=== PATIENT | female | born 1985 | race Two or more races ===

== ENCOUNTER → 2023-08-09 | Outpatient (CLI) | payer BC ==
[2023-08-09 08:22] LABS: Urine Blood 3+ /uL (Negative); Urine Clarity Clear (Clear); Urine Color Light-Yellow (Yellow); Urine Protein, UAD TRACE (Negative); Urine Specific Gravity 1.026 (1.001-1.035); Urine Urobilinogen Normal (Negative)
[2023-08-09 08:33] LABS: Basophils # (auto) 0 10 ^3/uL (0-0.2); Basophils % (auto) 0.5 % (0.0-2.0); Eosinophils # (auto) 0.1 10 ^3/uL (0-0.8); Eosinophils % (auto) 2.2 % (0.0-7.0); Hematocrit 41.9 % (36.0-46.0); Hemoglobin 13.6 g/dL (12.2-16.2); Lymphocytes # (auto) 1.9 10 ^3/uL (0.4-5.4); Mean Corpuscular Hemoglobin 29.7 pg (28.0-32.0); Mean Corpuscular Hgb Conc. 32.5 g/dL (32.0-36.0); Mean Corpuscular Volume 91.4 fL (80.0-100.0); Monocytes # (auto) 0.3 10 ^3/uL (0-1.3); Monocytes % (auto) 5.6 % (0.0-12.0); Neutrophils % (auto) 55.7 % (37.0-80.0); Nucleated Red Blood Cells % 0.1 %; Red Blood Cells 4.59 10^6/uL (4.0-5.20); Red Cell Distribution Width 13.4 % (11.8-14.3); White Blood Cell 5.4 10^3/uL (4.4-10.8)
[2023-08-09 08:52] LABS: Uric Acid 4.3 mg/dL (3.1-7.8)
== END | disposition home or self-care (01) ==
LOC: LAB 07:53
PROVIDERS: ATTEND Family Medicine
DX: Z13.89 Encounter for screening for other disorder (principal); Z00.01 Encounter for general adult medical examination with abnormal findings; O14.94 Unspecified pre-eclampsia, complicating childbirth; M54.41 Lumbago with sciatica, right side; Z68.33 Body mass index [BMI] 33.0-33.9, adult; Z3A.00 Weeks of gestation of pregnancy not specified
CPT/HCPCS: 36415; 80061; 81003; 83036; 84443; 84550; 85025

== ENCOUNTER 2024-02-15 21:11 | Emergency (ER) | payer BC ==
[~2024-02-15] VITALS: Ht 165.1 cm; Wt 95.3 kg
--- NOTE | 2024-02-15 21:42 | ED.PDOC ---
GI ASSESSMENT HPI Comments 38-year-old female who came to ER for abdominal pain. Patient denies any abdominal surgeries. States for the past 2 days she has been experiencing burning epigastric short upper quadrant abdominal pain, usually occurring after meals. Noted to have nausea and vomiting. Denies any urinary symptoms or fever. Chief Complaint: Abdominal Pain Time Seen by MD: 21:42 Reviewed Notes: Nurses Notes Allergies: Coded Allergies: Amoxicillin (Verified Allergy, Unknown, 02/15/24) Benzocaine (Verified Allergy, Unknown, 02/15/24) Fish Oil (Verified Allergy, Unknown, 02/15/24) Penicillins (Verified Allergy, Unknown, 02/15/24) Information Source: Patient Mode of Arrival: Ambulatory Timing: Days Duration: Intermittent Prehospital treatment: None Quality: Burning Vomitus: Watery Stool: Normal Severity: Moderate Recent: None Recent Hx of: None Pain Location: Epigastric, RUQ Associated sign and symptoms: Nausea, Vomiting, Abdominal Pain Past Medical History PAST MEDICAL HISTORY: Denies Surgical History: Denies all surgeries HOUSE COORDINATOR History: Denies all HOUSE COORDINATOR Hx Family History Family History: Reviewed,noncontributory to illness Social History Smoker: Non-Smoker Alcohol: Denies ETOH Use Drugs: Denies Drug Use Lives In: Home Constitutional: denies: chills, diaphoresis, fatigue, fever, malaise, sweats, weakness, others EENTM: denies: blurred vision, double vision, ear bleeding, ear discharge, ear drainage, ear pain, ear ringing, eye pain, eye redness, hearing loss, mouth pain, mouth swelling, nasal discharge, nose bleeding, nose congestion, nose pain, photophobia, tearing, throat pain, throat swelling, voice changes, others Respiratory: denies: cough, hemoptysis, orthopnea, SOB at rest, shortness of breath, SOB with excertion, stridor, wheezing, others Cardiovascular: denies: chest pain, dizzy spells, diaphoresis, Dyspnea on exertion, edema, irregular heart beat, left arm pain, lightheadedness, palpitations, PND, syncope, others Gastrointestinal: reports: abdominal pain, nausea, vomiting; denies: abdomen distended, blood streaked bowels, constipated, diarrhea, dysphagia, difficulty s wallowing, hematemesis, melena, poor appetite, poor fluid intake, rectal bleeding, rectal pain, others Genitourinary: denies: abnormal vagina bleeding, burning, dyspareunia, dysuria, flank pain, frequency, hematuria, incontinence, pain, , vagina discharge, urgency, others Neurological: denies: dizziness, fainting, headache, left sided numbness, left sided weakness, numbness, paresthesia, pre-existing deficit, right sided numbness, right sided weakness, seizure, speech problems, tingling, tremors, weakness, others Musculoskeletal: denies: back pain, gout, joint pain, joint swelling, muscle pain, muscle stiffness, neck pain, others Integumetry: denies: bruises, change in color, change in hair/nails, dryness, laceration, lesions, lumps, rash, wounds, others Allergic/Immunocompromised: denies: Difficulty Healing, Frequent Infections, Hives, Itching, others Hematologic/Lymphatic: denies: anemia, blood clots, easy bleeding, easy bruising, swollen glands, others Endocrine: denies: excessive hunger, excessive sweating, excessive thirst, excessive urination, flushing, intolerance to cold, intolerance to heat, unexplained weight gain, unexplained weight loss, others Psychiatric: denies: anxiety, bipolar disorder, depression, hopeless, panic disorder, schizophrenia, sleepless, suicidal, others Physical Exam General Appearance: No Apparent Distress, Normal HEENT: Normal ENT Inspection, Pharynx Normal, TMs Normal Neck: Full Range of Motion, Non-Tender, Normal, Normal Inspection Respiratory: Chest Non-Tender, Lungs Clear, No Accessory Muscle Use, No Respiratory Distress, Normal Breath Sounds Cardiovascular: No Edema, No JVD, No Murmur, No Gallop, Normal Peripheral Pulses, Regular Rate/Rhythm Breast Exam: Deferred Gastrointestinal: Epigastric, No Organomegaly, No Pulsatile Mass, Normal Bowel Sounds, RUQ, Soft, Tenderness Genitalia: Deferred Pelvic: Deferred Rectal: Deferred Extremities: No calf tenderness, Normal capillary refill, Normal inspection, Normal range of motion, Non-tender, No pedal edema Musculoskeletal : Apperance: Normal Neurologic: Alert, arcade game technician II-XII nml as Tested, No Motor Deficits, Normal Affect, Normal Mood, No Sensory Deficits Cerebellar Function: Normal Reflexes: Normal Skin: Dry, Normal Color, Warm Lymphatic: No Adenopathy Was a procedure done? Was a procedure done?: No GI differential Dx Differential Diagnosis: Cholecystitis, Constipation, Diverticular disease, Gastritis/PUD, Gastroenteritis, Pancreatitis, UTI, Urolithiasis X-Ray, Labs, Meds, VS Vital Signs Date Time Temp Pulse Resp B/P (MAP) Pulse Ox O2 Delivery O2 Flow Rate FiO2 02/15/24 22:53 98.3 102 16 140/80 (100) 100 98.3 02/15/24 21:22 98.3 100 20 142/91 (108) 100 Lab Test 02/15/24 21:43 02/15/24 21:26 Range/Units White Blood Count 6.8 4.4-10.8 10^3/uL Red Blood Count 4.44 4.0-5.20 10^6/uL Hemoglobin 13.9 12.2-16.2 g/dL Hematocrit 40.4 36.0-46.0 % Mean Corpuscular Volume 91.0 80.0-100.0 fL Mean Corpuscular Hemoglobin 31.2 28.0-32.0 pg Mean Corpuscular Hemoglobin Concent 34.3 32.0-36.0 g/dL Red Cell Distribution Width 13.1 11.8-14.3 % Platelet Count 216 140-450 10^3/uL Mean Platelet Volume 8.9 6.9-10.8 fL Neutrophils (%) (Auto) 56.4 37.0-80.0 % Lymphocytes (%) (Auto) 35.0 10.0-50.0 % Monocytes (%) (Auto) 6.2 0.0-12.0 % Eosinophils (%) (Auto) 1.9 0.0-7.0 % Basophils (%) (Auto) 0.5 0.0-2.0 % Neutrophils # (Auto) 3.8 1.6-8.6 10 ^3/uL Lymphocytes # (Auto) 2.4 0.4-5.4 10 ^3/uL Monocytes # (Auto) 0.4 0-1.3 10 ^3/uL Eosinophils # (Auto) 0.1 0-0.8 10 ^3/uL Basophils # (Auto) 0 0-0.2 10 ^3/uL Nucleated Red Blood Cells 0.0 % Sodium Level 139 136-145 mmol/L Potassium Level 4.0 3.5-5.1 mmol/L Chloride Level 109 H 98-107 mmol/L Carbon Dioxide Level 22 20-31 mmol/L Anion Gap 8 5-15 Blood Urea Nitrogen 7 L 9-23 mg/dL Creatinine 0.88 0.550-1.02 mg/dL Glomerular Filtration Rate Calc 85 >90 mL/min BUN/Creatinine Ratio 8.0 L 10.0-20.0 Serum Glucose 97 74-106 mg/dL Calcium Level 10.1 8.7-10.4 mg/dL Total Bilirubin 0.4 0.2-1.0 mg/dL Aspartate Amino Transferase (AST) 13 13-40 U/L Alanine Aminotransferase (ALT) 16 7-40 U/L Alkaline Phosphatase 81 46-116 U/L Total Protein 7.3 5.7-8.2 g/dL Albumin 4.9 H 3.2-4.8 g/dL Lipase 48 12-53 U/L Urine Color Colorless Yellow Urine Clarity Clear Clear Urine pH 6.5 5.0-9.0 Urine Specific [place] 1.004 1.001-1.035 Urine Protein Negative Negative Urine Ketones Negative Negative Urine Blood Negative Negative /uL Urine Nitrite Negative Negative Urine Bilirubin Negative Negative Urine Urobilinogen Normal Negative mg/dL Urine Leukocyte Esterase 1+ Negative /uL Urine RBC 1 0 - 4 /hpf Urine WBC 1 0 - 5 /hpf Urine Squamous Epithelial Cells None seen <5 /hpf Urine Bacteria Few H None Seen /hpf Urine Glucose Normal Normal mg/dL Urine Test Negative Negative Current Medications Medications (Trade) Dose Ordered Sig/Lexi Route Start Time Stop Time Status Last Admin Sodium Chloride 1,000 ml @ 1,000 mls/hr Q1H ONCE IV 02/15/24 21:45 02/15/24 22:44 DC 02/15/24 23:16 Pantoprazole Sodium (Protonix) 40 mg ONCE ONCE IV 02/15/24 21:45 02/15/24 21:46 DC 02/15/24 23:12 PROCEDURE(s): GBUS - GALLBLADDER REASON: ruq pain ORDER NUMBER(s): [id number], ACCESSION NUMBER(s): [id number] FINDINGS: Increased echogenicity to the hepatic parenchyma suggesting steatosis.. The liver measures 14.56 cm. No intrahepatic biliary ductal dilatation is noted. The gallbladder wall measures 0.12 cm and is unremarkable. No gallstones or sludge is seen. The common duct measures 0.46 cm and is unremarkable. No pericholecystic fluid is noted. Negative ultrasound Gale's sign is elicited. The right kidney measures 11.09 cm. No hydronephrosis. The pancreas is visualized and appears normal The visualized portions of the IVC and aorta are grossly unremarkable. IMPRESSION: 1. 14.56 cm liver with findings suggesting steatosis. 2. Gallbladder appears normal. Time of 1ST Reevaluation: 21:35 Reevaluation 1ST: Unchanged Patient Education/Counseling: Diagnosis, Treatment Family Education/Counseling: No Family Present Departure 1 Departure Time of Disposition: 23:41 (Patient presented with abdominal pain that was concerning for possible appendicits, gastritis, cholecystitis, colitis, gastroenteritis, or orther possible surgical emergency. Data: 1. I ordered and reviewed the result of at least 3 labs including a CBC, BMP, and Urinalysis. 2. I independently interpreted the following tests: Ultrasound is concerning for liver steatosis .Risk:This patient has a high risk of morbidity due to further diagnostic testing or treatment and may suffer from an acute abdominal process disorder. Fortunately workup reveals likely peptic ulcer disease. and patient can be safely discharged to home with outpatient follow up.) Impression: Primary Impression: Acid reflux Qualified Codes: K21.9 - Gastro-esophageal reflux disease without esophagitis Disposition: HOME / SELF CARE / HOMELESS Condition: Stable Additional Instructions: You likely have a gastric ulcer. It is important to stay well hydrated and well rested. You should take [id number] omeprazole daily for 2 weeks. You should follow up with the regular doctor within 1 week. If your symptoms worsen or you have any other concerns please return to the ER. Discharged With: Self Critical Care Note Critical Care Time?: No Stability Stability form required: No Heart Score Heart Score: Heart Score Response (Comments) Value History N/A 0 EKG N/A 0 Age N/A 0 Risk Factors N/A 0 Troponin N/A 0 Total 0 I personally scribed for WALE ALWRENCE MD ([email or web address]) on 02/15/24 at 21:42. Electronically submitted by Harshad Knott ([email or web address]). I personally scribed for WALE LAWRENCE MD ([email or web address]) on 02/15/24 at 22:48. Electronically submitted by Harshad Knott ([email or web address]). WALE LAWRENCE MD Feb 15, 2024 21:42
[2024-02-15 21:52] LABS: Basophils # (auto) 0 10 ^3/uL (0-0.2); Basophils % (auto) 0.5 % (0.0-2.0); Eosinophils # (auto) 0.1 10 ^3/uL (0-0.8); Eosinophils % (auto) 1.9 % (0.0-7.0); Hematocrit 40.4 % (36.0-46.0); Hemoglobin 13.9 g/dL (12.2-16.2); Lymphocytes # (auto) 2.4 10 ^3/uL (0.4-5.4); Mean Corpuscular Hemoglobin 31.2 pg (28.0-32.0); Mean Corpuscular Hgb Conc. 34.3 g/dL (32.0-36.0); Monocytes # (auto) 0.4 10 ^3/uL (0-1.3); Monocytes % (auto) 6.2 % (0.0-12.0); Neutrophils # (auto) 3.8 10 ^3/uL (1.6-8.6); Neutrophils % (auto) 56.4 % (37.0-80.0); Platelet Count (auto) 216 10^3/uL (140-450); Red Blood Cells 4.44 10^6/uL (4.0-5.20); Red Cell Distribution Width 13.1 % (11.8-14.3); White Blood Cell 6.8 10^3/uL (4.4-10.8)
[2024-02-15 22:00] LABS: Urine Bacteria FEW /hpf (None Seen); Urine Blood Negative /uL (Negative); Urine Clarity Clear (Clear); Urine Color Colorless (Yellow); Urine Protein, UAD Negative (Negative); Urine Specific Gravity 1.004 (1.001-1.035); Urine Urobilinogen Normal (Negative); Urine WBC 1 /hpf (0 - 5); Urine pH 6.5 (5.0-9.0)
[2024-02-15 22:09] LABS: Alanine Aminotransferase 16 U/L (7-40); Albumin 4.9 g/dL (3.2-4.8); Alkaline Phosphatase 81 U/L (46-116); Anion Gap 8 (5-15); Aspartate Aminotransferase 13 U/L (13-40); Bilirubin, Total 0.4 mg/dL (0.2-1.0); Blood Urea Nitrogen 7 mg/dL (9-23); Calcium 10.1 mg/dL (8.7-10.4); Carbon Dioxide 22 mmol/L (20-31); Chloride 109 mmol/L (98-107); Glucose 97 mg/dL (74-106); Lipase 48 U/L (12-53); Sodium 139 mmol/L (136-145); Total Protein 7.3 g/dL (5.7-8.2)
--- NOTE | 2024-02-15 22:19 | DVH ---
INDICATION: Pain. TECHNIQUE: Multiple real-time sonographic images of the abdomen were obtained. COMPARISON: None FINDINGS: Increased echogenicity to the hepatic parenchyma suggesting steatosis.. The liver measures 14.56 cm. No intrahepatic biliary ductal dilatation is noted. The gallbladder wall measures 0.12 cm and is unremarkable. No gallstones or sludge is seen. The co mmon duct measures 0.46 cm and is unremarkable. No pericholecystic fluid is noted. Negative ultrasou nd Gale's sign is elicited. The right kidney measures 11.09 cm. No hydronephrosis. The pancreas is visualized and appears normal The visualized portions of the IVC and aorta are grossly unremarkable. IMPRESSION: 1. 14.56 cm liver with findings suggesting steatosis. 2. Gallbladder appears normal.
[2024-02-15] MEDS: MORPHINE SULFATE 4 MG/ML SYR/VIAL IV ONE (22:50)
[2024-02-15] MEDS: ONDANSETRON HCL 4 MG/2 ML VIAL IV ONE (22:58)
[2024-02-15] MEDS: PANTOPRAZOLE 40 MG/10 ML VIAL INJ IV ONE (23:12)
[2024-02-15] MEDS: SODIUM CHLORIDE 0.9% 1,000 ML IV ONE (23:16)
[2024-02-16 00:22] VITALS: BP 130/78; PULSE 89; RESP 18; TEMP 98.3; O2SAT 99
== END 2024-02-16 00:25 | disposition home or self-care (01) ==
LOC: ER 21:11
DX: K21.9 Gastro-esophageal reflux disease without esophagitis (principal); Z88.0 Allergy status to penicillin; Z88.8 Allergy status to other drugs, medicaments and biological substances
CPT/HCPCS: 36415; 76705; 80053; 81001; 81025; 83690; 85025; 96361; 96374; 99285; J2470; J7030; J2405

== ENCOUNTER → 2024-06-18 | Outpatient (CLI) | payer BC ==
[2024-06-18 11:16] LABS: Triglycerides 129 mg/dL (< 150)
[2024-06-18 11:17] LABS: LDL Cholesterol 83 mg/dL (< 100)
[2024-06-18 11:18] LABS: HDL Cholesterol 55 mg/dL (40-59)
[2024-06-18 11:19] LABS: Cholesterol 152 mg/dL (< 200)
== END | disposition home or self-care (01) ==
LOC: LAB 10:16
PROVIDERS: ATTEND Family Medicine
DX: E78.2 Mixed hyperlipidemia (principal)
CPT/HCPCS: 36415; 80061

== ENCOUNTER 2024-07-13 17:38 | Emergency (ER) | payer BC ==
[~2024-07-13] VITALS: Ht 165.1 cm; Wt 96.9 kg
[2024-07-13 18:00] VITALS: BP 125/79; PULSE 91; RESP 16; TEMP 99.2; O2SAT 98
[2024-07-13] MEDS ORDERED: AZIT500T66 PO (18:53)
--- NOTE | 2024-07-13 18:54 | ED.PDOC ---
Eye-HPI HPI Comments THIS IS A 39-YEAR-OLD FEMALE CHIEF COMPLAINT SORE THROAT X1 MONTH. SYMPTOMS OF BILATERAL EAR PAIN AND PRESSURE INTERMITTENT COUGH FEVERS AND CHILLS. DIFFICULTY BREATHING, SHORTNESS OF BREATH, OR CHEST PAIN. Chief Complaint: Sore Throat Time Seen by MD: 17:43 Primary Care Provider: MITUL Hinkle Notes: Nurses Notes, Medications, Allergies Allergies: Coded Allergies: Amoxicillin (Verified Allergy, Unknown, 02/15/24) Benzocaine (Verified Allergy, Unknown, 02/15/24) Fish Oil (Verified Allergy, Unknown, 02/15/24) Penicillins (Verified Allergy, Unknown, 02/15/24) Information Source: Patient Mode of Arrival: Ambulatory Past Medical History PAST MEDICAL HISTORY: Denies Surgical History: Denies all surgeries BRANCH SERVICE REPRESENTATIVE History: Denies all BRANCH SERVICE REPRESENTATIVE Hx Family History Family History: Reviewed,noncontributory to illness Social History Smoker: Non-Smoker Alcohol: Denies ETOH Use Drugs: Denies Drug Use Lives In: Home Constitutional: reports: chills, fever; denies: diaphoresis, fatigue, malaise, sweats, weakness, others EENTM: reports: ear pain, throat pain, throat swelling; denies: blurred vision, double vision, ear bleeding, ear discharge, ear drainage, ear ringing, eye pain, eye redness, hearing loss, mouth pain, mouth swelling, nasal discharge, nose bleeding, nose congestion, nose pain, photophobia, tearing, voice changes, others Respiratory: reports: cough; denies: hemoptysis, orthopnea, SOB at rest, short ness of breath, SOB with excertion, stridor, wheezing, others Cardiovascular: denies: chest pain, dizzy spells, diaphoresis, Dyspnea on exertion, edema, irregular heart beat, left arm pain, lightheadedness, palpitations, PND, syncope, others Gastrointestinal: denies: abdomen distended, abdominal pain, blood streaked bowels, constipated, diarrhea, dysphagia, difficulty swallowing, hematemesis, melena, nausea, poor appetite, poor fluid intake, rectal bleeding, rectal pain, vomiting, others Genitourinary: denies: abnormal vagina bleeding, burning, dyspareunia, dysuria, flank pain, frequency, hematuria, incontinence, pain, , vagina discharge, urgency, others Physical Exam General Appearance: No Apparent Distress, Normal HEENT: Pharyngeal Erythema, TMs Normal Neck: Full Range of Motion, Non-Tender Respiratory: Chest Non-Tender, Lungs Clear, No Accessory Muscle Use, No Respiratory Distress, Normal Breath Sounds Cardiovascular: No Edema, No JVD, No Murmur, No Gallop, Normal Peripheral Pulses, Regular Rate/Rhythm Breast Exam: Deferred Gastrointestinal: No Organomegaly, Non Tender, No Pulsatile Mass, Normal Bowel Sounds, Soft Genitalia: Deferred Pelvic: Deferred Rectal: Deferred Extremities: Normal capillary refill, Normal inspection, Normal range of motion, Non-tender, No pedal edema Musculoskeletal : Apperance: Normal Neurologic: Alert, brace end mainspring former II-XII nml as Tested, No Motor Deficits, Normal Affect, Normal Mood, No Sensory Deficits Cerebellar Function: Normal Reflexes: Normal Skin: Dry, Normal Color, Warm Lymphatic: No Adenopathy Was a procedure done? Was a procedure done?: No EENT DIFF Eye: N/A Sore Throat: Peritonsillar Abscess, Peritonsillar Cellulitis, Streptococcal X-Ray, Labs, Meds, VS Vital Signs Date Time Temp Pulse Resp B/P (MAP) Pulse Ox O2 Delivery O2 Flow Rate FiO2 07/13/24 18:00 99.2 91 16 125/79 (94) 98 99.2 X-Ray, Labs, Meds, VS Comment GIVEN DECADRON FOR THE PAIN AND SWELLING. TRIAL AZITHROMYCIN PATIENT STATES SHE IS ALLERGIC TO PENICILLIN. TAKE MEDICATIONS PRESCRIBED SIDE EFFECTS DISCUSSED [id number] TYLENOL OR MOTRIN NEEDED FOR THE PAIN AND FEVER PER LABELED DOSING INSTRUCTIONS FOLLOW UP WITH YOUR PCP IN 1-2 DAYS NECESSARY ER RETURN PRECAUTIONS GIVEN PATIENT INDICATES UNDERSTANDING AGREES WITH DISCHARGE PLAN OF CARE. Time of 1ST Reevaluation: 18:52 Reevaluation 1ST: Improved Patient Education/Counseling: Diagnosis, Treatment, Prognosis, Need For Follow Up Family Education/Counseling: No Family Present Departure 1 Departure Time of Disposition: 18:52 Impression: Primary Impression: Acute pharyngitis Qualified Codes: J02.9 - Acute pharyngitis, unspecified Disposition: HOME / SELF CARE / HOMELESS Condition: Stable e-Prescriptions Azithromycin (Azithromycin) 500 Mg Tab 1 TAB PO DAILY for 5 Days, #5 TAB Prov: MAINE LI PUGGER HELPER 07/13/24 Discharged With: Self Critical Care Note Critical Care Time?: No Stability Stability form required: No SALBADOR LIK [facility] Jul 13, 2024 18:54
[2024-07-13] MEDS: DexAMETHasone SOD PHOS 10MG/1ML VIAL INJ IM ONE (18:59)
== END 2024-07-13 19:10 | disposition home or self-care (01) ==
LOC: ER 17:38
DX: J02.9 Acute pharyngitis, unspecified (principal); H92.03 Otalgia, bilateral; R05.9 Cough, unspecified; Z88.0 Allergy status to penicillin; Z88.1 Allergy status to other antibiotic agents; Z91.013 Allergy to seafood; Z88.8 Allergy status to other drugs, medicaments and biological substances
CPT/HCPCS: 96372; 99283; J1100

== ENCOUNTER 2024-11-19 18:56 | Emergency (ER) | payer BC ==
[~2024-11-19] VITALS: Ht 165.1 cm; Wt 96.0 kg
[2024-11-19 20:01] LABS: Hematocrit 42.5 % (36.0-46.0); Hemoglobin 14.1 g/dL (12.2-16.2); Mean Corpuscular Hemoglobin 30.4 pg (28.0-32.0); Mean Corpuscular Volume 91.4 fL (80.0-100.0); Nucleated Red Blood Cells % 0.1 %
[2024-11-19 20:09] LABS: Potassium 4.2 mmol/L (3.5-5.1); Sodium 141 mmol/L (136-145)
[2024-11-19 20:10] LABS: Anion Gap 10 (5-15); Calcium 9.5 mg/dL (8.7-10.4); Carbon Dioxide 21 mmol/L (20-31)
--- NOTE | 2024-11-19 20:12 | DVH ---
Exam: CT CT AB PEL WO CON-NO ORAL OR IV History: Right sided flank pain Comparison Study: None TECHNIQUE: Multidetector CT of the abdomen and pelvis was performed from lung bases to pubic symphysi s. Imaging was performed without IV contrast. Axial, coronal, and sagittal multiplanar reformats were obtained from the axial data set by the technologist. RADIATION DOSE: DLP 841.3 mGy.cm; CTDI vol 16.12 mGy. Findings: Limited evaluation given noncontrast technique. Lungs: The lung bases are clear. Heart: No cardiomegaly or pericardial effusion. Liver: Unremarkable. Gallbladder: Unremarkable. Spleen: Unremarkable Pancreas: Unremarkable Adrenals: Unremarkable Kidneys: Unremarkable. No nephroureterolithiasis. GI tract: Unremarkable : 2.8 cm left ovarian cyst. Unremarkable. Vasculature: Unremarkable Lymphadenopathy: Absent Peritoneum: No ascites Musculoskeletal: Unremarkable Soft tissues: Unremarkable Impression: 1. Limited evaluation given noncontrast technique. 2. No acute abdominopelvic abnormalities. 3. No nephroureterolithiasis.
[2024-11-19 20:15] LABS: BUN/Creatinine Ratio 12.0 (10.0-20.0); Blood Urea Nitrogen 11 mg/dL (9-23); Glucose 101 mg/dL (74-106)
[2024-11-19 20:17] LABS: Chloride 110 mmol/L (98-107)
[2024-11-19] MEDS: ONDANSETRON ODT 4 MG TAB PO ONE (20:27)
[2024-11-19] MEDS: KETOROLAC TROMETH 60MG/2ML VIAL IM ONE (20:27)
[2024-11-19 21:21] LABS: Urine Protein, UAD Negative (Negative)
[2024-11-19] MEDS ORDERED: NITR-87 PO (22:34)
[2024-11-19] MEDS ORDERED: ZOFR4T PO (22:34)
[2024-11-19] MEDS ORDERED: ACET500T58 PO (22:34)
[2024-11-19] MEDS ORDERED: IBUP-1455 PO (22:34)
--- NOTE | 2024-11-19 22:35 | ED.PDOC ---
BENNIE Corbett HPI Comments This patient is a pleasant but morbidly obese 39-year-old female who arrives to the ED today for evaluation of right-sided flank and abdominal pain concerns for the past week. Patient states the symptoms came on and has been intermittent for the past five days. Patient states they has been relatively consistent over the past day. Patient states intermittent nausea. Patient denies any fever. Patient denies any history of kidney stones or nephrology related issues. Vital signs were stable at arrival. Chief Complaint: Flank Pain Time Seen by MD: 19:02 Primary Care Provider: MITUL Allergies: Coded Allergies: Amoxicillin (Verified Allergy, Unknown, 02/15/24) Benzocaine (Verified Allergy, Unknown, 02/15/24) Fish Oil (Verified Allergy, Unknown, 02/15/24) Penicillins (Verified Allergy, Unknown, 02/15/24) Information Source: Patient Mode of Arrival: Ambulatory Severity: Moderate Timing: Days Duration: Since onset Prehospital treatment: None Onset: Spontaneous Symptoms: Other (Right-sided flank and abdominal pain) Location: Abdomen, (R) Flank associated signs and symptoms: Abdominal Pain, Nausea Past Medical History PAST MEDICAL HISTORY: Denies Surgical History: Denies all surgeries LITIGATOR History: Denies all LITIGATOR Hx Family History Family History: Reviewed,noncontributory to illness Social History Smoker: Non-Smoker Alcohol: Denies ETOH Use Drugs: Denies Drug Use Lives In: Home Constitutional: denies: chills, diaphoresis, fatigue, fever, malaise, sweats, weakness, others EENTM: denies: blurred vision, double vision, ear bleeding, ear discharge, ear drainage, ear pain, ear ringing, eye pain, eye redness, hearing loss, mouth pain, mouth swelling, nasal discharge, nose bleeding, nose congestion, nose pain, photophobia, tearing, throat pain, throat swelling, voice changes, others Respiratory: denies: cough, hemoptysis, orthopnea, SOB at rest, shortness of breath, SOB with excertion, stridor, wheezing, others Cardiovascular: denies: chest pain, dizzy spells, diaphoresis, Dyspnea on exertion, edema, irregular heart beat, left arm pain, lightheadedness, palpitations, PND, syncope, others Gastrointestinal: reports: abdominal pain, nausea; denies: abdomen distended, blood streaked bowels, constipated, diarrhea, dysphagia, difficulty swallowing, hematemesis, melena, poor appetite, poor fluid intake, rectal bleeding, rectal pain, vomiting, others Genitourinary: reports: flank pain; denies: abnormal vagina bleeding, burning, dyspareunia, dysuria, frequency, hematuria, incontinence, pain, , vagina discharge, urgency, others Neurological: denies: dizziness, fainting, headache, left sided numbness, left sided weakness, numbness, paresthesia, pre-existing deficit, right sided numbness, right sided weakness, seizure, speech problems, tingling, tremors, weakness, others Musculoskeletal: denies: back pain, gout, joint pain, joint swelling, muscle pain, muscle stiffness, neck pain, others Integumetry: denies: bruises, change in color, change in hair/nails, dryness, laceration, lesions, lumps, rash, wounds, others Allergic/Immunocompromised: denies: Difficulty Healing, Frequent Infections, Hives, Itching, others Hematologic/Lymphatic: denies: anemia, blood clots, easy bleeding, easy bruising, swollen glands, others Endocrine: denies: excessive hunger, excessive sweating, excessive thirst, excessive urination, flushing, intolerance to cold, intolerance to heat, unexplained weight gain, unexplained weight loss, others Psychiatric: denies: anxiety, bipolar disorder, depression, hopeless, panic disorder, schizophrenia, sleepless, suicidal, others Physical Exam General Appearance: Moderate Distress (Jzne-sa-[id number] distress at time of evaluation.), Normal HEENT: Normal ENT Inspection, Pharynx Normal, TMs Normal Neck: Full Range of Motion, Non-Tender, Normal, Normal Inspection Respiratory: Chest Non-Tender, Lungs Clear, No Accessory Muscle Use, No Respiratory Distress, Normal Breath Sounds Cardiovascular: No Edema, No JVD, No Murmur, No Gallop, Normal Peripheral Pulses, Regular Rate/Rhythm Breast Exam: Deferred Gastrointestinal: Other (Diffuse right-sided flank pain that radiates into the upper abdomen. Difficult to assess due to body habitus. No definitive CVA tenderness.) Genitalia: Deferred Pelvic: Deferred Rectal: Deferred Extremities: No calf tenderness, Normal capillary refill, Normal inspection, Normal range of motion, Non-tender, No pedal edema Neurologic: Alert, No Motor Deficits, Normal Affect, Normal Mood, No Sensory Deficits Cerebellar Function: Normal Reflexes: Normal Skin: Dry, Normal Color, Warm Lymphatic: No Adenopathy Was a procedure done? Was a procedure done?: No Differential Diagnosis Kidney stone (Female): Urolithiasis, Other (UTI, pyelonephritis, musculoskeletal pain, the hepatic steatosis) X-Ray, Labs, Meds, VS Vital Signs Date Time Temp Pulse Resp B/P (MAP) Pulse Ox O2 Delivery O2 Flow Rate FiO2 11/19/24 20:40 Room Air* 0 21 11/19/24 18:56 98.6 91 16 132/88 99 98.6 Lab Test 11/19/24 19:41 11/19/24 19:30 Range/Units White Blood Count 6.3 4.4-10.8 10^3/uL Red Blood Count 4.66 4.0-5.20 10^6/uL Hemoglobin 14.1 12.2-16.2 g/dL Hematocrit 42.5 36.0-46.0 % Mean Corpuscular Volume 91.4 80.0-100.0 fL Mean Corpuscular Hemoglobin 30.4 28.0-32.0 pg Mean Corpuscular Hemoglobin Concent 33.2 32.0-36.0 g/dL Red Cell Distribution Width 13.3 11.8-14.3 % Platelet Count 262 140-450 10^3/uL Mean Platelet Volume 8.9 6.9-10.8 fL Neutrophils (%) (Auto) 63.9 37.0-80.0 % Lymphocytes (%) (Auto) 29.9 10.0-50.0 % Monocytes (%) (Auto) 4.9 0.0-12.0 % Eosinophils (%) (Auto) 0.8 0.0-7.0 % Basophils (%) (Auto) 0.5 0.0-2.0 % Neutrophils # (Auto) 4.0 1.6-8.6 10 ^3/uL Lymphocytes # (Auto) 1.9 0.4-5.4 10 ^3/uL Monocytes # (Auto) 0.3 0-1.3 10 ^3/uL Eosinophils # (Auto) 0 0-0.8 10 ^3/uL Basophils # (Auto) 0 0-0.2 10 ^3/uL Nucleated Red Blood Cells 0.1 % Sodium Level 141 136-145 mmol/L Potassium Level 4.2 3.5-5.1 mmol/L Chloride Level 110 H 98-107 mmol/L Carbon Dioxide Level 21 20-31 mmol/L Anion Gap 10 5-15 Blood Urea Nitrogen 11 9-23 mg/dL Creatinine 0.92 0.550-1.02 mg/dL Glomerular Filtration Rate Calc 80 >90 mL/min BUN/Creatinine Ratio 12.0 10.0-20.0 Serum Glucose 101 74-106 mg/dL Calcium Level 9.5 8.7-10.4 mg/dL Urine Color Light-yellow Yellow Urine Clarity Clear Clear Urine pH 5.5 5.0-9.0 Urine Specific [place] 1.016 1.001-1.035 Urine Protein Negative Negative Urine Ketones Negative Negative Urine Blood Negative Negative /uL Urine Nitrite Negative Negative Urine Bilirubin Negative Negative Urine Urobilinogen Normal Negative mg/dL Urine Leukocyte Esterase 2+ Negative /uL Urine RBC 4 0 - 4 /hpf Urine Microscopic WBC 7 H 0-5 /HPF Urine Squamous Epithelial Cells Few <5 /hpf Urine Bacteria Few H None Seen /hpf Urine Glucose Normal Normal mg/dL Current Medications Medications (Trade) Dose Ordered Sig/Lexi Route Start Time Stop Time Status Last Admin Ketorolac Tromethamine (Toradol Injection) 30 mg ONCE ONCE IM 11/19/24 19:30 11/19/24 19:31 DC 11/19/24 20:27 Ondansetron HCl (Zofran Po) 4 mg ONCE ONCE PO 11/19/24 19:30 11/19/24 19:31 DC 11/19/24 20:27 X-Ray, Labs, Meds, VS Comment All studies performed the ED were evaluated by me personally. CT of the abdomen and pelvis was unremarkable for any definitive acute concern. Serum and urinalysis laboratories confirmed a urinary tract infection. Patient was given a dose of Macrobid prior to discharge. Advised patient utilize antibiotics as directed until completion. Time of 1ST Reevaluation: 22:32 Reevaluation 1ST: Improved Consultation: PCP Patient Education/Counseling: Diagnosis, Treatment Family Education/Counseling: Diagnosis, Treatment SEPSIS Sepsis Screen Date sepsis recognized/suspect: Nov 19, 2024 Time Sepsis recognized/suspect: 1856 Recent Procedure: No On Antibiotic Therapy: No Respiratory Rate >20: No Heart Rate >90: Yes Temp<36 C (96.8 F) or >38.3 C: No SBP <90 or MAP <65 mmHG: No New Acute Mental Status Change: No Is the patient on CPAP, BIPAP,: No Physician Orders Ct Ab Pel Wo Con-No Oral Or Iv (11/19/24 19:26) Nitrofurantoin Capsule (Macrobid) (11/19/24 22:30) Vital Signs Date Time Temp Pulse Resp B/P (MAP) Pulse Ox O2 Delivery O2 Flow Rate FiO2 11/19/24 20:40 Room Air* 0 21 11/19/24 18:56 98.6 91 16 132/88 99 98.6 Laboratory Tests Test 11/19/24 19:41 White Blood Count 6.3 10^3/uL (4.4-10.8) Medications Medications Dose Ordered Sig/Lexi Route Start Time Stop Time Status Last Admin Dose Admin Ketorolac Tromethamine 30 mg ONCE ONCE IM 11/19/24 19:30 11/19/24 19:31 DC 11/19/24 20:27 Ondansetron HCl 4 mg ONCE ONCE PO 11/19/24 19:30 11/19/24 19:31 DC 11/19/24 20:27 Departure 1 Departure Time of Disposition: 22:32 Impression: Primary Impression: Urinary tract infection Disposition: HOME / SELF CARE / HOMELESS Condition: Stable Additional Instructions: Advised patient utilize antibiotics as directed until completion as well as pain medication as needed. Patient should practice good hydration throughout illness event. e-Prescriptions Ondansetron Odt 4MG Tab (ZOFRAN PO) 4 Mg Tb 4 MG PO Q6HP PRN, #10 TAB ODT TAB-DISSOLVE IN MOUTH, THEN SWALLOW Prov: YOKO BOLIVAR PAC 11/19/24 Acetaminophen (Acetaminophen) 500 Mg Tab 500 MG PO Q4HP PRN, #30 TAB Prov: YOKO BOLIVAR PAC 11/19/24 Ibuprofen Micronized (Ibuprofen) 800 Mg Tab 800 MG PO Q8HP PRN, #20 TAB Prov: YOKO BOLIVAR PAC 11/19/24 Nitrofurantoin Monohydrate Mac (Macrobid) 100 Mg Cap 100 MG PO BID for 5 Days, #10 CAP Prov: YOKO BOLIVAR PAC 11/19/24 Discharged With: Self, Friend Critical Care Note Critical Care Time?: No Stability Stability form required: No Heart Score Heart Score: Heart Score Response (Comments) Value History N/A 0 EKG N/A 0 Age N/A 0 Risk Factors N/A 0 Troponin N/A 0 Total 0 YOKO BOLIVAR PAC Nov 19, 2024 22:35
[2024-11-20 00:21] VITALS: BP 137/63; PULSE 74; RESP 17; TEMP 97.7; O2SAT 98
== END 2024-11-20 00:23 | disposition home or self-care (01) ==
LOC: ER 18:56
DX: N39.0 Urinary tract infection, site not specified (principal); Z88.0 Allergy status to penicillin
CPT/HCPCS: 36415; 74176; 80048; 81001; 85025; 96372; 99285; J1885; Q0162

== ENCOUNTER → 2025-01-08 | Outpatient (CLI) | payer BC ==
[~2025-01-08] MED LIST: ACET500T58 PO; IBUP-1455 PO; NITR-87 PO; ZOFR4T PO
[2025-01-08 08:56] LABS: Hematocrit 39.9 % (36.0-46.0); Hemoglobin 13.4 g/dL (12.2-16.2); Mean Corpuscular Hemoglobin 30.3 pg (28.0-32.0); Mean Corpuscular Volume 90.0 fL (80.0-100.0); Nucleated Red Blood Cells % 0.1 %
[2025-01-08 09:15] LABS: Alanine Aminotransferase 18 U/L (7-40); Albumin 4.3 g/dL (3.2-4.8); Alkaline Phosphatase 78 U/L (46-116); Anion Gap 9 (5-15); BUN/Creatinine Ratio 7.7 (10.0-20.0); Bilirubin, Total 0.6 mg/dL (0.2-1.0); Calcium 8.9 mg/dL (8.7-10.4); Carbon Dioxide 23 mmol/L (20-31); Cholesterol 140 mg/dL (< 200); Glucose 81 mg/dL (74-106); HDL Cholesterol 50 mg/dL (40-59); Potassium 4.6 mmol/L (3.5-5.1); Sodium 143 mmol/L (136-145); Total Protein 6.7 g/dL (5.7-8.2); Triglycerides 128 mg/dL (< 150)
[2025-01-08 09:16] LABS: Blood Urea Nitrogen 7 mg/dL (9-23); Chloride 111 mmol/L (98-107)
[2025-01-08 09:31] LABS: Urine Protein, UAD Negative (Negative)
[2025-01-08 10:46] LABS: Uric Acid 4.6 mg/dL (3.1-7.8)
== END | disposition home or self-care (01) ==
LOC: LAB 08:12
PROVIDERS: ATTEND Family Medicine
DX: K21.9 Gastro-esophageal reflux disease without esophagitis (principal); K76.0 Fatty (change of) liver, not elsewhere classified; M54.59 Other low back pain; R10.9 Unspecified abdominal pain; Z13.89 Encounter for screening for other disorder; Z00.01 Encounter for general adult medical examination with abnormal findings; Z87.891 Personal history of nicotine dependence
CPT/HCPCS: 36415; 80053; 80061; 81001; 83036; 84443; 84550; 85025